=== PATIENT | female | born 1965 | race African-American/Black ===

== ENCOUNTER 2017-01-09 17:14 | Emergency (ER) | payer OTHER ==
[~2017-01-09] VITALS: Ht 162.6 cm; Wt 73.0 kg
[2017-01-09] MEDS ORDERED: KETOROLAC 60MG/2ML VIAL IM ONE (20:00)
[2017-01-09 21:36] VITALS: BP 110/78
== END 2017-01-09 21:39 | disposition home or self-care (01) ==
LOC: ER 18:09
DX: G89.29 Other chronic pain (principal); M54.9 Dorsalgia, unspecified
CPT/HCPCS: 96372; 99283; J1885